=== PATIENT | male | born 1985 | race Caucasian/White ===

== ENCOUNTER 2021-11-01 21:53 | Emergency (ER) | payer SELFPAY ==
[~2021-11-01] VITALS: Ht 188 cm; Wt 79.4 kg
[2021-11-01 22:10] VITALS: BP_SYST 147
[2021-11-01] MEDS ORDERED: LISI10TA29 PO (22:18)
--- NOTE | 2021-11-01 22:20 | NUR ---
Patient triaged and placed in waiting room. VSS and patient appears in no acute distress at this time. Accompanied by self, awaiting available bed, and MD notified of need for MSE.
--- NOTE | 2021-11-02 03:28 | NUR ---
Patient to ER bed 5 to gown for evaluation. Side rails up. Report given to self. introduced self to patient, positioned for comfort. I&D tray at bedside. continue to monitor.
[2021-11-02] MEDS ORDERED: LIDOCAINE/EPI 1% 1:100000 20 ML VIAL INJ ONE ×2 (03:53→04:00)
[2021-11-02] MEDS ORDERED: MORPHINE 4 MG INJ. 4 MG/ML VIAL IM ONE (04:15)
--- NOTE | 2021-11-02 05:07 | NUR ---
Medicated w/ morphine 4mg per MD orders. Will cont to monitor and observe for any adverse reaction. bed to low position sr up, continue to monitor.
--- NOTE | 2021-11-02 05:30 | NUR ---
no adverse reaction noted. patient resting comfortably at this time continue to monitor.
[2021-11-02] MEDS ORDERED: SULF1TAB48 PO (06:43)
[2021-11-02] MEDS ORDERED: IBUP-1971 PO (06:43)
--- NOTE | 2021-11-02 06:50 | NUR ---
Patient given written and verbal discharge instructions and verbalizes understanding. ER MD discussed with patient the results and treatment provided. Patient in stable condition. ID arm band removed. Rx of motrin, bactrim given. Patient educated on pain management and to follow up with PMD. Pain Scale 0. Opportunity for questions provided and answered. Medication side effect fact sheet provided.
== END 2021-11-02 06:50 | disposition home or self-care (01) ==
LOC: SED 21:53
DX: L02.31 Cutaneous abscess of buttock (principal)
CPT/HCPCS: 10060; 76882; 96372; 99284; J2270